=== PATIENT | female | born 1980 | race Caucasian/White ===

== ENCOUNTER 2018-10-03 07:23 | Day surgery (SDC) | payer OTHER ==
[2018-09-26 10:23] LABS: HEMATOCRIT 40.2 % (36.0-47.0); HEMOGLOBIN 13.6 g/dL (12.0-15.5); MEAN CORPUSCULAR HEMOGLOBIN 28.3 pg (27.0-33.4); MEAN CORPUSCULAR HGB CONC 33.9 g/dL (32.0-36.0); MEAN CORPUSCULAR VOLUME 83 fl (80-97); PLATELET COUNT 225 10^3/uL (150-450); RED BLOOD COUNT 4.82 10^6/uL (3.72-5.28); WHITE BLOOD COUNT 5.1 10^3/uL (4.0-10.5)
[2018-09-26 10:43] LABS: APPEARANCE,URINE CLEAR; BILIRUBIN,URINE NEGATIVE (NEGATIVE); COLOR,URINE STRAW; GLUCOSE, URINE NEGATIVE (NEGATIVE); KETONES,URINE NEGATIVE (NEGATIVE); LEUKOCYTE ESTERASE,URINE NEGATIVE (NEGATIVE); NITRITE,URINE NEGATIVE (NEGATIVE); PROTEIN,URINE NEGATIVE (NEGATIVE); URINE SPECIFIC GRAVITY 1.006; UROBILINOGEN,URINE NEGATIVE mg/dL (<2.0)
[2018-09-26 11:01] LABS: ADD MANUAL MICROSCOPIC YES; RBC,URINE RARE /HPF; WBC,URINE NONE SEEN /HPF
[~2018-10-03 07:23] MED LIST: LACTATED RINGERS 1000 ML IV PRN; LIDOCAINE 0.5% INJ-PF (5 MG/ML) 50 ML SDV SUBCUT PRN
[2018-10-03] MEDS ORDERED: MIDAZOLAM 2 MG/2 ML INJ ONE (09:24)
[2018-10-03] MEDS ORDERED: FENTANYL CITRATE INJ/PF 100 MCG/2 ML AMPUL ONE (09:24)
[2018-10-03] MEDS ORDERED: PROPOFOL INJ 200 MG/20 ML VIAL IV ONE ×2 (09:25→10:19)
[2018-10-03] MEDS ORDERED: LIDOCAINE 1%/EPINEPHRINE INJ 20 ML VIAL ONE (09:32)
[2018-10-03] MEDS ORDERED: DIPHENHYDRAMINE HCL 50 MG/ML VIAL IV PRN (10:01)
[2018-10-03] MEDS ORDERED: ONDANSETRON HCL INJ/PF 4 MG/2 ML SDV IV PRN (10:01)
[2018-10-03] MEDS ORDERED: RINGERS SOLUTION,LACTATED 1,000 ML IV PRN (10:17)
[2018-10-03] MEDS ORDERED: KETOROLAC TROMETHAMINE INJ/PF 30 MG/1 ML SDV IV PRN (10:17)
[2018-10-03] MEDS ORDERED: IBUPROFEN 800 MG TABLET PO PRN (10:17)
[2018-10-03] MEDS ORDERED: OXYCODONE-ACETAMINOPHEN 5-325 MG TABLET PO PRN ×2 (10:17)
--- NOTE | 2018-10-03 10:21 | Discharge Summary ---
Discharge Summary (SDC) - Discharge Final Diagnosis: Foreign body in left arm Date of Surgery: 10/03/18 Discharge Date: 10/03/18 Condition: Good Forms: ASU Anesthesia D/C Instruction, Discharge POC-Surgical Service Prescriptions: Ibuprofen [Motrin 800 mg Tablet] 800 mg PO Q8H PRN 10 Days #30 tablet PRN Reason: Referrals: PAM MIGUEL MD [Primary Care Provider] - MARIE VIZCAINO MD [ACTIVE STAFF] - Discharge Diet: Regular Respiratory Treatments at Home: Deep Breathing/Coughing Discharge Activity: Activity As Tolerated, Balance Activity w/Rest Report the Following to Your Physician Immediately: Shortness of Breath, Fever over 101 Degrees, Unusual Bleeding, Redness, Swelling, Warmth, Drainage-Yellow, Drainage-[place], Drainage-Green, IV Site Infection Signs
--- NOTE | 2018-10-03 10:25 | Operative Report ---
Operative Report DATE OF SURGERY: 10/03/18 PREOPERATIVE DIAGNOSIS: Nexplanon that is not palpable POSTOPERATIVE DIAGNOSIS: Same OPERATION: Incision with removal of Nexplanon SURGEON: MARIE VIZCAINO ANESTHESIA: Local TISSUE REMOVED OR ALTERED: None COMPLICATIONS: None ESTIMATED BLOOD LOSS: Minimal INTRAOPERATIVE FINDINGS: Nexplanon located greater than 1 cm deep in the subcutaneous tissue PROCEDURE: Patient was taken back to the OR and placed in supine position. Her arm was prepared and draped. The area where the incision was to be made was infiltrated with a dilute solution of lidocaine with epinephrine. An incision was made near the insertion site. Prior to surgery she had an x-ray which showed the Nexplanon still placed in the arm. We discussed removal versus leaving in place and she wished to have it removed. The incision was approximately 2 cm in length. It extended into the subcutaneous space. After palpation into the incision I was able to palpate the Nexplanon greater than 1 cm deep in the subcutaneous tissue up against the bicep muscle. The tip of the Nexplanon was grasped and elevated. The end of the capsule surrounding the Nexplanon was incised and the Nexplanon was removed. Bleeding was minimal there is no evidence of injury injury to any nerves or muscle. The incision was closed with a 4-0 Vicryl suture in a running fashion. Steri-Strips were placed and a Band- Aid was placed. She is brought to recovery room in stable condition.
[2018-10-03 12:38] VITALS: BP 100/67
[2018-10-03] MEDS ORDERED: KETOROLAC TROMETHAMINE 60 MG/2 ML SDV ONE (15:01)
== END 2018-10-03 12:30 | disposition home or self-care (01) ==
LOC: OROUT 07:23
PROVIDERS: ATTEND Obstetrics & Gynecology
DX: Z30.46 Encounter for surveillance of implantable subdermal contraceptive (principal)
CPT/HCPCS: 11982; 36415; 85027; 81025; 81001; J2250; J1885; J3490; J2704; 940; J3010